=== PATIENT | female | born 1970 | race Caucasian/White ===

== ENCOUNTER 2017-08-21 21:20 | Emergency (ER) | payer MEDICAID ==
[2017-08-21 21:26] VITALS: BP 98/66; PULSE 60; RESP 18; TEMP 98.1; O2SAT 100
--- NOTE | 2017-08-21 21:30 | EDPHY ---
H & P Stated Complaint: l upper tooth pain HPI/ROS: HPI CHIEF COMPLAINT: Left upper dental pain. HISTORY OF PRESENT ILLNESS: Patient otherwise healthy 47-year-old female no significant medical history does not take any medications, she presents emergency room with 1 day of left upper frontal dental pain. She also reports very little area of gumline swelling. She denies any fever. No history of dental issues. Denies trouble swallowing. Denies recent illness. Denies trauma. Past Medical History: No significant medical history Past Surgical History: No significant surgical history Social History: Lives locally, denies drugs alcohol tobacco products. Family History: Noncontributory ROS REVIEW OF SYSTEMS: A comprehensive 10 point review of systems is otherwise negative aside from elements mentioned in the history of present illness. Exam Constitutional triage nursing summary reviewed, vital signs reviewed, awake/ alert. Eyes normal conjunctivae and sclera, EOMI, PERRLA. HENT oropharynx: Superior to tooth 6. There is a gumline swelling, very minimal, I do not appreciate a very large abscess and I do not believe this needs to be drained at this time, moist mucus membranes, no epistaxis, neck supple/ no meningismus, no raccoon eyes. Respiratory clear to auscultation bilaterally, normal breath sounds, no respiratory distress, no wheezing. Cardiovascular rate normal, regular rhythm, no murmur, no edema, distal pulses normal. Gastrointestinal soft, non-tender, no rebound, no guarding, normal bowel sounds, no distension, no pulsatile mass. Genitourinary no CVA tenderness. Musculoskeletal no midline vertebral tenderness, full range of motion, no calf swelling, no tenderness of extremities, no meningismus, good pulses, neurovascularly intact. Skin pink, warm, & dry, no rash, skin atraumatic. Neurologic awake, alert and oriented x 3, AAOx3, moves all 4 extremities equally, motor intact, sensory intact, CN II-XII intact, normal cerebellar, normal vision, normal speech. Psychiatric normal mood/affect. Heme/Lymph/Immune no lymphadenopathy. Differential Diagnosis: Includes but is not limited to in a particular order dental infection, apical abscess, pulpitis, dental fracture, gumline abscess or early Medical Decision Making: Plan for this patient recommend antibiotics penicillin VK, close dentistry follow-up I have given her referred to [facility]. She understands to call their for follow-up appointment. Additionally she understands return emergency room she develops any worsening symptoms this includes worsening pain, swelling fever. Source: Patient - Personal History LMP (Females 10-55): 1-7 Days Ago Current Tetanus/Diphtheria Vaccine: Yes Current Tetanus Diphtheria and Acellular Pertussis (TDAP): Yes - Medical/Surgical History Hx Asthma: No Hx Chronic Respiratory Disease: No Hx Diabetes: No Hx Cardiac Disease: No Hx Renal Disease: No Hx Cirrhosis: No Hx Alcoholism: No Hx HIV/AIDS: No Hx Splenectomy or Spleen Trauma: No - Social History Smoking Status: Never smoked Constitutional: Initial Vital Signs Temperature (C) 36.7 C 08/21/17 21:22 Heart Rate 60 08/21/17 21:22 Respiratory Rate 18 08/21/17 21:22 Blood Pressure 98/66 L 08/21/17 21:22 O2 Sat (%) 100 08/21/17 21:22 O2 Delivery Mode Room Air Allergies/Adverse Reactions: sulfamethoxazole [From ] Allergy (Verified 08/21/17 21:21) trimethoprim [From Mayra] Allergy (Verified 08/21/17 21:21) Home Medications: Medication Instructions Recorded Penicillin V Potassium [Penicillin 500 mg PO BID #14 tab 08/21/17 VK] Departure - Departure Disposition: Home, Routine, Self-Care Clinical Impression: Pain, dental Condition: Good Instructions: Toothache (ED) Additional Instructions: 1. Please follow up with the dentist You have been provided a referral. 2. Take antibiotic as prescribed. 3. Return emergency room if worsening pain or swelling. Referrals: NONE *PRIMARY CARE P,. [Primary Care Provider] - As per Instructions [facility] [Outside] - As per Instructions Prescriptions: Penicillin V Potassium [Penicillin VK] 500 mg PO BID #14 tab
[2017-08-21] MEDS ORDERED: PENICILLIN VK 500 MG TAB PO ONE (21:34)
== END 2017-08-21 21:45 | disposition home or self-care (01) ==
DX: K08.89 Other specified disorders of teeth and supporting structures (principal)